=== PATIENT | male | born 1970 | race Caucasian/White ===

== ENCOUNTER 2017-03-16 10:32 | Outpatient (CLI) | payer OTHER | END 2017-03-16 10:33 | disposition home or self-care (01) | DX: G47.33 Obstructive sleep apnea (adult) (pediatric) (principal) ==

== ENCOUNTER 2017-05-18 14:28 | Outpatient (CLI) | payer OTHER | END 2017-05-18 14:29 | disposition home or self-care (01) | LOC: SC 14:28 | PROVIDERS: ATTEND Internal Medicine Pulmonary Disease | DX: G47.33 Obstructive sleep apnea (adult) (pediatric) (principal) | CPT/HCPCS: 99212; 99213 ==

== ENCOUNTER 2022-11-16 09:26 | Outpatient (CLI) | payer OTHER ==
--- NOTE | 2022-11-16 15:26 | SLEEP CARE CONSULTATION ---
Information from patient questionnaire entered by Justen Cabrera. I have reviewed and concur with the information entered by Justen Cabrera. This document represents the service I personally performed and the decisions made by me, Dominic Balderas MD, [facility]. History of Present Illness Service Date and Time: 11/16/2022925 Reason for Visit: New patient Chief Complaint: reports: Unrefreshed sleep, Snoring, Observed pauses in breathing, Other (UPDATE SUPPLIES) Date of Onset: 2007 Usual bedtime: 930PM Time it takes to fall asleep: QUICKLY WITH CPAP Snores at night: Yes Observed to quit breathing while asleep: Yes Sleeps alone due to snoring: Yes Number of times waking at night: 2-3 Reasons for waking at night: reports: Choking, Snoring, Bathroom, Other (NOISE) Toss, Turn, or Twitch while sleeping: No Recalls having dreams: Yes Usually gets out of bed at: 630AM Feels refreshed in the morning: Yes Morning headache: No Sleepy or fatigued during the day: Yes Ever fallen asleep while driving: No Takes day naps: Yes Dreams during day naps: Yes Prior sleep studies: Yes (2009 [facility] ) Additional HPI information: I had the pleasure of seeing Mr. Coronado today regarding obstructive sleep apnea- hypopnea. As you know, he is a 46-year-old gentleman who was diagnosed in 2011 at [facility]. The polysomnography report shows an AHI was 5.2 and mukund oxygen saturation of 85%. He was last seen here in 2017 and continued with autoCPAP set between 4 8 cmH2O. He wears a [employer]ics DreamWear nasal cushion mask. The compliance data show usage in 30 out of the past 30 nights, averaging 8 hours a night. The residual AHI is 4.4. He is comfortable on the pressure but his says he snores. His [place] Sleepiness Scale score today is 8. [employer] was his durable medical supplier. He has not gotten any supplies for 2 3 years. 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 Patient is and lives in [place]. Have you smoked in the past 12 months: No Alcohol use: No Caffeine use: Yes Caffeine amount and frequency: 16OZ 5 DAYS A WEEK Family History Family history of sleep disordered breathing: Yes Family Hx Sleep Apnea: Father: Snoring, Sibling: Snoring, Grandparent: Snoring Allergies and Home Medications Known drug allergies: No Drug allergies reviewed: Yes Home medication list reviewed: Yes Review of Systems Cardiovascular: denies: high blood pressure, palpitations, chest pain, irregular heart rate or pulse, leg or foot swelling, have to sleep sitting up, other Respiratory: denies: shortness of breath, wheeze, sputum production, chronic cough, other Gastrointestinal: denies: heartburn, difficulty swallowing, nausea, vomitting, diarrhea, abdominal pain, other Urinary: denies: incontinence, frequency, urgency, impotence, other Neurological: denies: headaches, seizure, head trauma, disorientation, speech dysfunction, gait or balance problems, fainting or unconsciousness, other Psychiatric: denies: Attention Deficit Hyperactivity, anxiety, depression, mood disorder, claustrophobia, other Ear/Nose/Throat: reports: sinus problems Endocrine: denies: thyroid disease, history of goiter, sluggishness, too hot or cold, excessive thirst, increased appetite, increased urination, unexplained weakness, other Musculoskeletal: reports: joint pain Immunologic: denies: sneezing, rash, itching, allergies to food or environment, other Physical Exam Vital signs obtained and entered by: JUSTEN Correa MA Blood Pressure: 124/72 (LEFT ARM ) Cuff size: regular Heart Rate: 69 O2 Saturation: 97 Height: 5 ft 7 in Weight: 234 lb 9.6 oz Body Mass Index: 36.7 BMI Classification: Obese Neck circumference: 18 Impression and Plan IMPRESSION: 1. Obstructive Sleep Apnea-Hypopnea Syndrome, mild as previously diagnosed 10 years ago. He is doing very well on the CPAP therapy. He has good compliance and clinical benefits. The current low pressure setting appears somewhat effective but he still snores a little through it. He has not gotten any supplies for a while. His machine is 5 years old. He would like to use [facility]. Plan: 1. Prescription made for a new autoCPAP with heated humidifier and other related supplies. The machine will be set between 5 and 10 cmH2O. 2. Attempt to lose weight. 3. Return for follow up after one month of using the CPAP. Prescriptions: Auto CPAP Follow up with Sleep Care in: 1-2 months Visit Type: In Office Time Spent with Patient (minutes): 15 Provider Statement: I spent 100% of the Face to Face Visit with the patient with greater than 50% spent counseling the patient and coordination of care.
[2022-11-16 15:27] VITALS: BP 124/72
== END 2022-11-16 09:27 | disposition home or self-care (01) ==
LOC: SC 09:26
PROVIDERS: ATTEND Internal Medicine Pulmonary Disease
DX: G47.33 Obstructive sleep apnea (adult) (pediatric) (principal); E66.9 Obesity, unspecified; Z68.36 Body mass index [BMI] 36.0-36.9, adult
CPT/HCPCS: 99202; 99212

== ENCOUNTER 2023-11-18 17:39 | Outpatient (CLI) | payer OTHER ==
--- NOTE | 2023-11-19 12:22 | XRAY Report ---
PROCEDURE: Wrist 3 View LT INDICATIONS: DEQUERVAINS TENOSYNOVITIS TECHNIQUE: 3 views of the wrist were acquired. COMPARISON: None. FINDINGS: Bones: No fractures or dislocations. Mild osteoarthritic changes are noted throughout left wrist. N o suspicious bony lesions. Soft tissues: Mild soft tissue swelling over distal radius and radial styloid is seen. No suspicious soft tissue calcifications or masses. IMPRESSION: No acute bony abnormality. Mild wrist joint osteoarthritis. Soft tissue swelling over radial styloid likely related to patient's clinical diagnosis of de Quervain's tenosynovitis. Reviewed by: Kike Go MD on 11/19/2023 12:20 PM PST Approved by: Kike Go MD on 11/19/2023 12:20 PM PST Station ID: [id number]
== END 2023-11-18 23:59 | disposition home or self-care (01) ==
LOC: DI.S 17:39
PROVIDERS: ATTEND Registered Nurse
DX: M65.4 Radial styloid tenosynovitis [de Quervain] (principal); M19.032 Primary osteoarthritis, left wrist